=== PATIENT | male | born 1990 | race Hispanic/Latino ===

== ENCOUNTER 2021-10-14 11:29 | Emergency (ER) | payer BC, OTHER ==
--- NOTE | 2021-10-14 13:40 | ER ---
Nurse's Notes [facility] Name: Chaim Beasley Age: 30 yrs Sex: Male : 1990 Arrival Date: 10/14/2021 Time: 11:31 Bed Waiting Private MD: Diagnosis: Coronavirus infection, unspecified Presentation: 10/14 12:29 Chief complaint: Patient states: Covid Postitive 10/09/21. States fever, chills, loss vg1 of taste and smell, shortness breath, cough and body aches. Coronavirus screen: Vaccine status: Patient reports being unvaccinated. Client denies travel out of the [place] in the last 14 days. Ebola Screen: Patient negative for fever greater than or equal to 101.5 degrees Fahrenheit, and additional compatible Ebola Virus Disease symptoms. Initial Sepsis Screen: Does the patient meet any 2 criteria? No. Patient's initial sepsis screen is negative. Does the patient have a suspected source of infection? No. Patient's initial sepsis screen is negative. Risk Assessment: Do you want to hurt yourself or someone else? Patient reports no desire to harm self or others. Onset of symptoms was October 08, 2021. 12:29 Method Of Arrival: Ambulatory vg1 12:29 Acuity: TREY 3 vg1 Triage Assessment: 12:31 General: Appears in no apparent distress. comfortable, Behavior is calm, cooperative. vg1 Pain: Denies pain. Respiratory: Reports shortness of breath at rest on exertion cough that is productive, Onset: The symptoms/episode began/occurred 10/08/21, the patient has mild shortness of breath. Historical: - Allergies: 12:31 No Known Allergies; vg1 - Home Meds: 12:31 None [Active]; vg1 - PMHx: 12:31 None; vg1 - PSHx: 12:31 None; vg1 - Immunization history:: Client reports having NOT received the Covid vaccine. - Social history:: Smoking status: Patient denies any tobacco usage or history of. Assessment: 13:52 Reassessment: Patient appears in no apparent distress at this time. No changes from vg1 previously documented assessment. Patient and/or family updated on plan of care and expected duration. Pain level reassessed. Patient is alert, oriented x 3, equal unlabored respirations, skin warm/dry/pink. Vital Signs: 12:29 BP 115 / 74; Pulse 95; Resp 20; Temp 99.0(O); Pulse Ox 100% ; Weight 90.72 kg; Height 5 vg1 ft. 11 in. (180.34 cm); Pain 0/10; 12:29 Body Mass Index 27.89 (90.72 kg, 180.34 cm) vg1 ED Course: 11:31 Patient arrived in ED. kc5 12:31 Triage completed. vg1 12:31 Arm band placed on. vg1 13:28 Vignesh Adams PA is PHCP. nick 13:29 Too Harmon MD is Attending Physician. nick Administered Medications: No medications were administered Outcome: 13:40 Discharge ordered by . nick 13:52 Patient left the ED. vg1 Signatures: Vignesh Adams PA PA jmm Garcia, Victoria, RN RN vg1 Chrissie Julien 5
--- NOTE | 2021-10-14 13:40 | EDPHYS ---
Physician Documentation [facility] Name: Chaim Beasley Age: 30 yrs Sex: Male : 1990 Arrival Date: 10/14/2021 Time: 11:31 Bed Waiting Private MD: ED Physician Too Harmon HPI: 10/14 13:38 This 30 yrs old Male presents to ER via Ambulatory with complaints of jmm Shortness Of Breath, COVID POSITIVE 10/09/21. 13:38 The patient has shortness of breath with light activity. Onset: The symptoms/episode jmm began/occurred gradually, 1 week(s) ago. The patient's shortness of breath is aggravated by nothing, is alleviated by nothing. Associated signs and symptoms: Pertinent positives: non-productive cough, fever. Historical: - Allergies: 12:31 No Known Allergies; vg1 - Home Meds: 12:31 None [Active]; vg1 - PMHx: 12:31 None; vg1 - PSHx: 12:31 None; vg1 - Immunization history:: Client reports having NOT received the Covid vaccine. - Social history:: Smoking status: Patient denies any tobacco usage or history of. ROS: 13:38 Constitutional: Positive for body aches, chills, fever. jmm 13:38 Respiratory: Positive for cough. 13:38 All other systems are negative. Exam: 13:38 Constitutional: This is a well developed, well nourished patient who is awake, alert, jmm and in no acute distress. Head/Face: atraumatic. Eyes: EOMI, no conjunctival erythema appreciated ENT: Moist Mucus Membranes Neck: Trachea midline, Supple Chest/axilla: Normal chest wall appearance and motion. Cardiovascular: Regular rate and rhythm. No edema appreciated Respiratory: Normal respirations, no respiratory distress appreciated Abdomen/GI: Non distended, soft Back: Normal ROM Skin: General appearance color normal MS/ Extremity: Moves all extremities, no obvious deformities appreciated, no edema noted to the lower extremities Neuro: Awake and alert, normal gait Psych: Behavior is normal, Mood is normal, Patient is cooperative and pleasant Vital Signs: 12:29 BP 115 / 74; Pulse 95; Resp 20; Temp 99.0(O); Pulse Ox 100% ; Weight 90.72 kg; Height 5 vg1 ft. 11 in. (180.34 cm); Pain 0/10; 12:29 Body Mass Index 27.89 (90.72 kg, 180.34 cm) vg1 MDM: 13:38 Patient medically screened. [facility] 13:39 Data reviewed: vital signs, nurses notes. Counseling: I had a detailed discussion with [facility] the patient and/or guardian regarding: the historical points, exam findings, and any diagnostic results supporting the discharge/admit diagnosis, lab results, the need for outpatient follow up, to return to the emergency department if symptoms worsen or persist or if there are any questions or concerns that arise at home. Administered Medications: No medications were administered Disposition: 10/15 09:16 Co-signature as Attending Physician, Too Harmon MD I agree with the assessment and [facility] plan of care. Disposition Summary: 10/14/21 13:40 Discharge Ordered Location: Home [facility] Condition: Stable [facility] Diagnosis - Coronavirus infection, unspecified [facility] Followup: [facility] - With: Private Physician - When: 2 - 3 days - Reason: Recheck today's complaints, Continuance of care, Re-evaluation by your physician Discharge Instructions: - Discharge Summary Sheet [facility] - COVID-19 [facility] Forms: - Medication Reconciliation Form [facility] - Thank You Letter [facility] - Antibiotic Education [facility] - Prescription Opioid Use [facility] Prescriptions: - Bromfed DM 2-30-10 mg/5 mL Oral syrup - take 10 milliliter by ORAL route every 4 hours; 200 milliliter; Refills: 0, [facility] Product Selection Permitted - albuterol sulfate 90 mcg/actuation Inhalation HFA aerosol inhaler - inhale 2 puff by INHALATION route every 4 hours; 1 Pump; Refills: 0, Product [facility] Selection Permitted Signatures: Too Harmon MD MD cha Mickail, Joel, PA PA jmm Garcia, Victoria, RN RN vg1
[2021-10-14 13:56] VITALS: BP 115/74; TEMP 99; O2SAT 100
== END 2021-10-14 13:52 | disposition home or self-care (01) ==
LOC: ER 11:29
DX: U07.1 COVID-19 (principal)
CPT/HCPCS: 99281